=== PATIENT | male | born 1970 | race Caucasian/White ===

== ENCOUNTER 2025-02-23 08:29 | Day surgery (SDC) | payer OTHER ==
[~2025-02-23] VITALS: Ht 165.1 cm; Wt 62.0 kg
[~2025-02-23 08:29] MED LIST: ALLOPURINOL100 MG PO; IBLOOD GLUCOSE TEST STRIP 1 EA TEST VI PRN; LACTATED RINGER'S 1,000 ML IV SCH; LATANOPROST2.5 ML OPTH; LIDOCAINE HCL 1% 5 ML SDV INJ ONE
[2025-02-23 08:54] VITALS: BP 113/72
[2025-02-23] MEDS ORDERED: LIDOCAINE HCL 2% 5 ML SDV ONE (09:23)
--- NOTE | 2025-02-23 10:42 | NUR ---
02/23/25 1042 Alfredo Deutsch 1036: PT ARRIVED TO PACU VIA STRETCHER. PT ON RA AT THIS TIME WITH SATS IN THE MID 90'S. PT NON AROUSBALE AT THIS TIME. PTS ABDOMEN SOFT. PT POSITIONED ON LEFT LATERAL SIDE.
[2025-02-23 11:14] VITALS: BP 113/87
--- NOTE | 2025-02-28 16:39 | PATH ---
[facility] [address] [place], [place] [address] Signed SPECIMEN(S): A COLON POLYP, 90 CM SPECIMEN(S): B COLON POLYP, 120 CM SPECIMEN(S): C COLON POLYP, 30 CM SPECIMEN SOURCE: A. COLON POLYP, 90 CM B. COLON POLYP, 120 CM C. COLON POLYP, 30 CM CLINICAL HISTORY: Family history of colon cancer (father), colon polyps X3 FINAL PATHOLOGIC DIAGNOSIS: A. Colon, polyp at 90 cm, biopsy: - Portions of tubular adenoma (2 of 4 pieces); negative for high-grade dysplasia and malignancy. - Portion of benign, unremarkable colonic mucosa with a benign lamina propria lymphoid aggregate (1 of 4 pieces). - Portion of benign, unremarkable colonic mucosa (1 of 4 pieces). B. Colon at 120 cm, biopsy: - Portions of tubular adenoma (2 of 2 pieces). - Negative for high-grade dysplasia and malignancy. C. Colon, polyp at 30 cm, biopsy: - Smaller piece: Portion of tubular adenoma; negative for high-grade dysplasia and malignancy. - Larger piece: Partially denuded colonic mucosa with mild edema in the lamina propria and more prominent edema in the submucosa; negative for inflammation, atypia, and malignancy. - Occasional small groups of adipocytes are present in the submucosa, suggesting the possibility of a submucosal lipoma. SDL MICROSCOPIC EXAMINATION: Histologic sections of all submitted blocks are examined by light microscopy. These findings, together with the gross examination, support the pathologic diagnosis. GROSS DESCRIPTION: A. The specimen, labeled and designated "Brown, colon polyp, 90 cm," is received in formalin and consists of three hanna soft tissue fragments, ranging from 0.2-0.4 cm. Entirely submitted in (A1). PATIENT NAME: SEAN YIP PATHOLOGY DATE OF : 66 REPORT #: [id number] PHYSICIAN: GERALDINE PATHOLOGY PCP: FARSHAD CHEN MD REPORT IS CONFIDENTIAL AND NOT TO BE RELEASED WITHOUT AUTHORIZATION [facility] [address], [place] [address] Signed B. The specimen, labeled and designated "Brown, colon polyp, 120 cm," is received in formalin and consists of two hanna soft tissue fragments, ranging from 0.3-0.4 cm. Entirely submitted in (B1). C. The specimen, labeled and designated "Brown, colon polyp, 30 cm," is received in formalin and consists of a fragment of soft pink-hanna tissue (0.4 x 0.4 x 0.3 cm), and a pink-hanna strip of mucosa (1.1 x 0.6 x 0.3 cm). The resection margin of the larger piece is inked blue, and the tissue is serially sectioned to reveal pink-hanna soft cut surfaces. The specimen is submitted entirely in cassette (C1). VB (under the direct supervision of a pathologist) The Gross Description was prepared using a voice recognition system. The report was reviewed for accuracy; however, sound-alike word errors, addition and/or deletions may occur. If there are any questions about this report, please contact Client Services. ADDITIONAL NOTES: Immunohistochemical and/or in situ hybridization studies if performed in this case included appropriate positive controls that reacted as expected. This test was developed and its performance characteristics determined by [facility]. It has not been cleared or approved by the U.S. Food and Drug Administration. The FDA has determined that such clearance or approval is not necessary. This test is used for clinical purposes. It should not be regarded as investigational or for research. [facility] is certified under the Clinical Laboratory Improvement Amendments of 1988 (CLIA) as qualified to perform high complexity clinical laboratory testing. PERFORMING LABORATORY: Technical component was performed by [facility], [address] [place] [id number] (CLIA# [id number]). Professional interpretation was performed by [facility], [address] [place] [id number] (CLIA#: [id number]). Diagnostician: Lubna Anthony MD Pathologist Electronically Signed 02/28/2025 PATIENT NAME: SEAN YIP PATHOLOGY DATE OF : 66 REPORT #: [id number] PHYSICIAN: GERALDINE LAY PCP: FARSHAD HCEN MD REPORT IS CONFIDENTIAL AND NOT TO BE RELEASED WITHOUT AUTHORIZATION [address] [place] [address] Signed Copies: ~ PATIENT NAME: SEAN YIP PATHOLOGY DATE OF : 66 REPORT #: [id number] PHYSICIAN: GERALDINE PATHOLOGY PCP: FARSHAD CHEN MD REPORT IS CONFIDENTIAL AND NOT TO BE RELEASED WITHOUT AUTHORIZATION
== END 2025-02-23 11:22 | disposition home or self-care (01) ==
LOC: OPS 08:29 → DS 08:29 → OPS 09:50 → DS 10:30 → OPS 11:22
PROVIDERS: ATTEND Surgery
PROC: 0DBL8ZZ Excision of Transverse Colon, Via Natural or Artificial Opening Endoscopic (ICD-10-PCS; 2025-02-23)
PROC: 0DBN8ZZ Excision of Sigmoid Colon, Via Natural or Artificial Opening Endoscopic (ICD-10-PCS; 2025-02-23)
PROC: 0DBK8ZZ Excision of Ascending Colon, Via Natural or Artificial Opening Endoscopic (ICD-10-PCS; principal; 2025-02-23 09:50)
DX: Z12.11 Encounter for screening for malignant neoplasm of colon (principal); D12.5 Benign neoplasm of sigmoid colon; D12.2 Benign neoplasm of ascending colon; D12.3 Benign neoplasm of transverse colon; K63.89 Other specified diseases of intestine; E78.5 Hyperlipidemia, unspecified; H40.9 Unspecified glaucoma; M1A.9XX0 Chronic gout, unspecified, without tophus (tophi); Z79.899 Other long term (current) drug therapy; Z80.0 Family history of malignant neoplasm of digestive organs
CPT/HCPCS: 00811; 88305; J2003; J2704; J7121